=== PATIENT | male | born 1965 | race Two or more races ===

== ENCOUNTER 2019-02-17 19:04 | Emergency (ER) | payer SELFPAY ==
[~2019-02-17] VITALS: Ht 167.6 cm; Wt 77.1 kg
[2019-02-17 19:17] VITALS: BP 137/87
[2019-02-17] MEDS ORDERED: SODIUM CHLORIDE 0.9% 1,000 ML IVB ONE (19:31)
[2019-02-17 19:34] LABS: Urine Bacteria NONE SEEN /hpf (None Seen); Urine Blood Negative /uL (Negative); Urine Specific Gravity 1.002 (1.001-1.035); Urine WBC 1 /hpf (0 - 3)
[2019-02-17 20:01] LABS: Amphetamine Screen, Urine NEGATIVE (NEGATIVE); Barbiturate Scree,Urine NEGATIVE (NEGATIVE); Benzodiazephine Screen, Urine NEGATIVE (NEGATIVE); Cannabinoid Screen, Urine NEGATIVE (NEGATIVE); Cocaine Screen, Urine NEGATIVE (NEGATIVE); Opiate Scree,Urine NEGATIVE (NEGATIVE); Phencyclidine Screen, Urine NEGATIVE (NEGATIVE)
[2019-02-17 20:08] LABS: Basophils # (auto) 0.1 uL; Eosinophils # (auto) 0.4 uL; Eosinophils % (auto) 6.4 % (0.0-7.0); Hematocrit 49.2 % (41.0-53.0); Hemoglobin 16.3 g/dL (13.5-17.5); Lymphocytes # (auto) 2.3 uL; Lymphocytes % (auto) 38.7 % (10.0-50.0); Mean Corpuscular Hemoglobin 30.9 pg (28.0-32.0); Mean Corpuscular Volume 93.5 fL (80.0-100.0); Monocytes # (auto) 0.4 uL; Neutrophils # (auto) 2.8 uL; Neutrophils % (auto) 47.9 % (37.0-80.0); Platelet Count (auto) 379 10^3/uL (140-450); Red Blood Cells 5.26 10^6/uL (4.5-5.90); Red Cell Distribution Width 15.3 % (11.8-14.3); White Blood Cell 5.9 10^3/uL (4.4-10.8)
[2019-02-17 20:26] LABS: Alanine Aminotransferase 84 U/L (16-61); Albumin 4.4 g/dL (3.4-5.0); Anion Gap 14 (5-15); Aspartate Aminotransferase 45 U/L (15-37); BUN/Creatinine Ratio 9.2; Blood Urea Nitrogen 8 mg/dL (7-18); Calcium 8.5 mg/dL (8.5-10.1); Carbon Dioxide 22 mmol/L (21-32); Chloride 110 mmol/L (98-107); GFR African American 118 mL/min; GFR Non-African American 98 mL/min; Glucose 96 mg/dL (74-106); Potassium 3.9 mmol/L (3.5-5.1); Sodium 146 mmol/L (136-145)
[2019-02-17 20:34] LABS: Alkaline Phosphatase 72 U/L (45-117); Bilirubin, Total 0.3 mg/dL (0.2-1.0); Total Protein 8.3 g/dL (6.4-8.2)
[2019-02-17] MEDS ORDERED: LORazepam 2MG/ML-1ML VIAL IV ONE (21:15)
[2019-02-17] MEDS ORDERED: SODIUM CHLORIDE 0.9% 1,000 ML IV ONE (21:15)
== END 2019-02-18 01:22 | disposition home or self-care (01) ==
LOC: EDBD 19:04 → ER 19:11
DX: F10.920 Alcohol use, unspecified with intoxication, uncomplicated (principal); I10 Essential (primary) hypertension; F17.210 Nicotine dependence, cigarettes, uncomplicated; Y90.8 Blood alcohol level of 240 mg/100 ml or more
CPT/HCPCS: 36415; 80053; 80307; 80320; 81001; 85025; 94761; 96374; 99283; J2060; J7030